=== PATIENT | male | born 1960 | race African-American/Black ===

== ENCOUNTER 2018-03-15 15:02 | Emergency (ER) | payer SELFPAY ==
[~2018-03-15] VITALS: Ht 182.9 cm; Wt 81.6 kg
--- NOTE | 2018-03-15 15:21 | Emergency Room Report ---
History of Present Illness General Chief Complaint: Alcohol Intoxication Source: EMS Present Illness HPI 53-year-old male patient presents to ER brought in by ambulance for EtOH intoxication. Reports patient was found asleep on the street. Patient reports that he was sleeping and picked up by EMS. Reports hx of drinking and smoking cigarettes, reports drank yesterday. Denies drug use. Denies acute symptoms, denies fever, chest pain, shortness of breath, abdominal pain. Denies past medical history. Denies suicidal or homicidal ideation. Denies dizziness or vision changes. Denies past mental health history. Denies bleeding. Allergies: Coded Allergies: No Known Allergies (Unverified , 03/15/18) Patient History Past Medical History: see triage record Reviewed Nursing Documentation: PMH: Agreed; PSxH: Agreed Nursing Documentation-PMH Past Medical History: No Stated History Review of Systems All Other Systems: negative except mentioned in HPI Physical Exam Vital Signs Date Time Temp Pulse Resp B/P (MAP) Pulse Ox O2 Delivery O2 Flow Rate FiO2 03/15/18 15:01 98.2 86 16 151/78 99 Room Air 98.2 Sp02 EP Interpretation: reviewed, normal General Appearance: well appearing, no apparent distress, alert, GCS 15, non- toxic Head: normocephalic, atraumatic, other - negative Figueroa sign, negative Raccoon eyes, no skull depression Eyes: bilateral eye normal inspection, bilateral eye PERRL ENT: hearing grossly normal, normal pharynx, no angioedema, normal voice, uvula midline, moist mucus membranes Neck: full range of motion Respiratory: lungs clear, normal breath sounds, no rhonchi, no respiratory distress, no accessory muscle use, no wheezing, speaking full sentences Cardiovascular #1: regular rate, rhythm, no edema Gastrointestinal: non tender, soft, no mass, non-distended, no guarding, no rebound Musculoskeletal: back normal, digits/nails normal, gait/station normal, normal range of motion, non-tender Neurologic: alert, oriented x3, responsive, motor strength/tone normal, sensory intact Psychiatric: mood/affect normal Medical Decision Making PA Attestation Dr. Campos is my supervising Physician whom patient management has been discussed with. Diagnostic Impression: Primary Impression: Microcytic anemia ER Course Pt. presents to the ED BIB for possible ETOH intoxication. Ddx considered but are not limited to drug use, alcohol use, psychosis. Vital signs: are WNL, pt. is afebrile ordered labs, UDS. ER COURSE: Patient denies acute symptoms in the ER at this time. Reports he was not confused, was sleeping. Patient resting comfortably in bed, in no acute distress, nontoxic appearing. Physical exam benign, lungs clear to auscultation, no head trauma or lacerations , no abdominal TTP, no focal neuro deficits. Patient requested food. Patient able to eat food and drink liquids without difficulty. Patient able to answer questions. Will allow patient to rest. Ordered Head CT due to poor patient historian, hx ETOH use. Patient declined head CT. Patient has no focal neuro deficits, able to ambulate independently, no signs of cranial trauma. CBC shows pancytopenia, possibly due to chronic alcohol use. denies history of kidney disease, denies chronic disease. Follow-up with primary care provider for further treatment and referral as needed. Does not require treatment or blood transfusion at this time. Consult with Dr. Campos, agrees with lab interpretation. CMP unremarkable, no elevation in ALT or AST. UDS negative Acetaminophen and Salicylates WNL Serum alcohol <3 Patient resting comfortably in bed, nontoxic appearing, eating and drinking fluids. Patient appears stable for discharge to home, ambulating without difficulty. Instructed patient to not drink alcohol in excess. Patient requesting to be discharged. ER precautions given. Do not believe patient is a danger to himself or others at this time. DISCHARGE: At this time pt is stable for d/c to home. Patient is resting comfortably, in no acute distress, nontoxic appearing, talking without difficulty. Patient to take medications as instructed Will provide with patient care instructions and any necessary prescriptions. Care plan and follow-up instructions provided. Patient instructed to follow-up with primary care provider in 3 - 5 days. Patient questions asked and answered. Patient reports understanding and agreement to treatment plan. ER precautions given. Patient instructed to return to ER immediately for any new or worsening of symptoms including but not limited to increasing SOB, persistent fever. - Please note that this Emergency Department Report was dictated using [employer] technology software, occasionally this can lead to erroneous entry secondary to interpretation by the dictation equipment. Labs Test 03/15/18 16:22 03/15/18 18:15 White Blood Count 3.5 K/UL (4.8-10.8) Red Blood Count 4.55 M/UL (4.70-6.10) Hemoglobin 11.0 G/DL (14.2-18.0) Hematocrit 34.8 % (42.0-52.0) Mean Corpuscular Volume 77 FL (80-99) Mean Corpuscular Hemoglobin 24.2 PG (27.0-31.0) Mean Corpuscular Hemoglobin Concent 31.6 G/DL (32.0-36.0) Red Cell Distribution Width 15.9 % (11.6-14.8) Platelet Count 112 K/UL (150-450) Mean Platelet Volume 8.6 FL (6.5-10.1) Neutrophils (%) (Auto) 65.1 % (45.0-75.0) Lymphocytes (%) (Auto) 19.0 % (20.0-45.0) Monocytes (%) (Auto) 9.6 % (1.0-10.0) Eosinophils (%) (Auto) 5.2 % (0.0-3.0) Basophils (%) (Auto) 1.2 % (0.0-2.0) Sodium Level 141 MMOL/L (136-145) Potassium Level 4.3 MMOL/L (3.5-5.1) Chloride Level 107 MMOL/L (98-107) Carbon Dioxide Level 31 MMOL/L (21-32) Anion Gap 3 mmol/L (5-15) Blood Urea Nitrogen 21 mg/dL (7-18) Creatinine 1.3 MG/DL (0.55-1.30) Estimat Glomerular Filtration Rate > 60 mL/min (>60) Glucose Level 108 MG/DL (74-106) Calcium Level 8.6 MG/DL (8.5-10.1) Total Bilirubin 0.4 MG/DL (0.2-1.0) Aspartate Amino Transf (AST/SGOT) 24 U/L (15-37) Alanine Aminotransferase (ALT/SGPT) 59 U/L (12-78) Alkaline Phosphatase 130 U/L (46-116) Total Protein 7.2 G/DL (6.4-8.2) Albumin 3.7 G/DL (3.4-5.0) Globulin 3.5 g/dL Albumin/Globulin Ratio 1.1 (1.0-2.7) Salicylates Level 0.5 ug/mL (2.8-20) Acetaminophen Level < 2 MCG/ML (10-30) Serum Alcohol < 3 mg/dL Urine Opiates Screen Negative (NEGATIVE) Urine Barbiturates Screen Negative (NEGATIVE) Phencyclidine (PCP) Screen Negative (NEGATIVE) Urine Amphetamines Screen Negative (NEGATIVE) Urine Benzodiazepines Screen Negative (NEGATIVE) Urine Cocaine Screen Negative (NEGATIVE) Urine Marijuana (THC) Screen Negative (NEGATIVE) Last Vital Signs Date Time Temp Pulse Resp B/P (MAP) Pulse Ox O2 Delivery O2 Flow Rate FiO2 03/15/18 15:01 98.2 86 16 151/78 99 Room Air 98.2 Disposition: HOME, SELF-CARE Condition: Stable Patient Instructions: Iron Deficiency Anemia, Adult, [id number] Additional Instructions: Followup with primary care provider in 3 -5 days. Drink fluids to prevent dehydration. Take medications as directed. Patient questions asked and answered. ER precautions given, patient instructed to return to ER immediately for any new or worsening of symptoms. Claudio Hall Mar 15, 2018 15:21
[2018-03-15 16:33] LABS: BASOPHILS % (AUTO) 1.2 % (0.0-2.0); EOSINOPHILS % (AUTO) 5.2 % (0.0-3.0); HEMATOCRIT 34.8 % (42.0-52.0); MEAN CORPUSCULAR VOLUME 77 FL (80-99); MONOCYTES % (AUTO) 9.6 % (1.0-10.0); NEUTROPHILS % (AUTO) 65.1 % (45.0-75.0); PLATELET COUNT 112 K/UL (150-450); RED BLOOD COUNT 4.55 M/UL (4.70-6.10); RED CELL DISTRIBUTION WIDTH 15.9 % (11.6-14.8); WHITE BLOOD COUNT 3.5 K/UL (4.8-10.8)
[2018-03-15 17:14] LABS: ANION GAP 3 mmol/L (5-15); BLOOD UREA NITROGEN 21 mg/dL (7-18); CALCIUM 8.6 MG/DL (8.5-10.1); CARBON DIOXIDE 31 MMOL/L (21-32); CHLORIDE 107 MMOL/L (98-107); CREATININE 1.3 MG/DL (0.55-1.30); POTASSIUM 4.3 MMOL/L (3.5-5.1); SODIUM 141 MMOL/L (136-145)
[2018-03-15 17:18] LABS: ALANINE AMINOTRANSFERASE 59 U/L (12-78); ALBUMIN 3.7 G/DL (3.4-5.0); ALBUMIN/GLOBULIN RATIO 1.1 (1.0-2.7); ALKALINE PHOSPHATASE 130 U/L (46-116); ASPARTATE AMINO TRANSFERASE 24 U/L (15-37)
[2018-03-15 17:39] LABS: BILIRUBIN,TOTAL 0.4 MG/DL (0.2-1.0)
[2018-03-15 19:14] VITALS: BP 151/78
== END 2018-03-15 19:17 | disposition home or self-care (01) ==
LOC: EDBD 15:02 → EMR 15:32 → EDBD 15:32 → EMR 19:17
DX: D50.9 Iron deficiency anemia, unspecified (principal)
CPT/HCPCS: 36415; 80053; 80307; 85025; 96360; 99283; G0480; 80329